=== PATIENT | female | born 1945 | race Caucasian/White ===

== ENCOUNTER 2023-09-09 22:13 | Inpatient (IN) | payer OTHER, SELFPAY ==
[2023-09-09] VITALS (25 sets, daily range): BP systolic 126–209; BP diastolic 55–131; BMI 29.8; BMI 29.5
[2023-09-09 16:26] LABS: % Basophils 1.2 % (0-2); % Eosinophils 5.7 % (0-6); % Immature Granulocytes 0.3 % (0-0.5); % Lymphocytes 25.9 % (20.5-51.1); % Monocytes 12.9 % (1.7-9.3); Absolute Basophils 0.1 10^3/uL (0-0.2); Absolute Eosinophils 0.5 10^3/uL (0-0.7); Absolute Lymphocytes 2.3 10^3/uL (1.2-3.4); Absolute Monocytes 1.2 10^3/uL (0.1-0.6); Absolute Neutrophils 4.9 10^3/uL (1.4-6.5); Hematocrit 38.3 % (37.0-47.0); Hemoglobin 12.9 g/dL (12.0-16.0); Mean Corp Hgb Conc. 33.7 g/dL (33.0-37.0); Mean Corpuscular Hgb 32.3 pg (27.0-31.0); Mean Corpuscular Volume 95.8 fL (81.0-99.0); Mean Platelet Volume 9.5 fL (7.4-10.4); Nucleated Red Blood Cells % 0 %; Platelet Count 232 10^3/uL (130-400)
[2023-09-09 16:49] LABS: ALT (SGPT) 23 U/L (0-35); AST (SGOT) 37 U/L (14-36); Albumin 4.8 g/dl (3.5-5.0); Alkaline Phosphatase 129 U/L (38-126); Blood Urea Nitrogen 21 mg/dl (7-17); Carbon Dioxide 28 mmol/L (22-30); Chloride 99 mmol/L (98-107); Glucose 104 mg/dl (70-99); Potassium 3.9 mmol/L (3.5-5.1); Sodium 138 mmol/L (135-145); Total Bilirubin 0.5 mg/dl (0.2-1.3); Total Protein 8.2 g/dl (6.3-8.2); Troponin I < 0.012 ng/ml; eGFR > 60.00
--- NOTE | 2023-09-09 18:46 | ED.GENMED ---
History of Present Illness
General
Chief Complaint: Blood Pressure Problem
Source: patient
Exam Limitations: none
Time Seen by Provider: 09/09/23 18:03
Travel History
Have you had any contact with someone who has COVID-19?: No
Do you have any symptoms of coronavirus? Fever > 100 degrees, chills, cough, shortness of breath, sore throat, loss of taste or smell, muscle aches, or headache?: No
History of Present Illness
History of Present Illness:
This is a 78 year old female that comes in with c/o hypertension. States that she went to the PCP today as she has had this chest congestion. State that this has been going on for at least a month. States that she had called her PCP before and was
given an albuterol inhaler that she uses and she has about 14 inhalations left. States that she felt she was using this more then normal recently. States that this does help her get some phlegm up. States that she also started with [employer] Tea.
States that she has some chest tightness and SOB with a headache. Denies any fever, chills, abd pain, nausea, vomiting, diarrhea, dizziness, urinary burning.
Past History
Past History
ED Past Medical History: HTN and Other (Chronic bronchitis)
ED Past Surgical History: Orthopedic (Left hip replacement)
Social History
Tobacco: Former smoker
Alcohol: Daily (1 glass of either wine or Rohit Salcido. )
Personal:
Living: with family
Review of Systems
Review of Systems
All Other Systems: ROS reviewed and negative except as documented in HPI and ROS
Constitutional: Reports no symptoms; Denies fever or chills
EENT: Reports no symptoms
Respiratory: Reports cough
Cardiac: Reports chest pain (Tightness)
ABD/GI: Reports no symptoms; Denies abdominal pain, nausea or vomiting
: Reports no symptoms
Musculoskeletal: Reports no symptoms
Skin: Reports no symptoms
Neurological: Reports headache; Denies dizzy
Psychiatric: Reports no symptoms
Phy Exam
General Physical Exam
General Presentation: no apparent distress
General age: appears stated age
General Skin: warm and dry
General Habitus: elderly
General Mental: alert
General Hydration: appears well hydrated
ENT Exam
ENT Exam: TM's normal, pharynx normal and neck supple
Eye Exam
Eye Exam: EOMI
Cardiovascular Exam
Cardiovascular Exam: regular rate/rhythm, no edema and normal peripheral pulses
Pulmonary Exam
Pulmonary Exam: no respiratory distress, no rales, chest non tender, no crackles, no rhonchi and generalized wheezing (Faint insp and exp wheezing throughout)
Gastrointestinal Exam
Gastrointestinal Exam: normal bowel sounds, non tender, soft, no organomegaly, no pulsatile mass and non distended
Musculoskeletal Exam
Musculoskeletal Exam: full ROM and no edema
Skin Exam
Skin Exam: normal color, warm/dry, no rash and no petechia
Psychiatric Exam
Psychiatric Exam: normal mood/affect
Course
Orders/Labs/Results
Orders:
Orders
09/09/23 16:07
Electrocardiogram (*1) Urgent
Reason for Study: Abnormal EKG
09/09/23 16:08
EKG- Treatment ONCE
09/09/23 16:17
Complete Blood Count/With Diff Urgent
Comprehensive Metabolic Panel Urgent
Troponin I Urgent
09/09/23 18:44
HydrALAZINE [Apresoline] 5 mg IV NOW STA
Ipratropium/Albuterol Sulfate [Duoneb] 3 ml INH R NOW ONE
Prednisone [Deltasone] 40 mg PO NOW STA
09/09/23 18:45
CR Chest - 2 Views Urgent
Comment:
Reason For Exam: chest pain
09/09/23 18:53
Electrocardiogram (*1) Urgent
Reason for Study: Chest Pain
Other Reason for Exam: Repeat with Troponin
EKG- Treatment ONCE
09/09/23 19:05
Troponin I Urgent
09/09/23 19:57
Aspirin Chewable [Low Strength Aspirin] 324 mg PO NOW STA
Nitroglycerin Sublingual [Nitrostat (Sublingual)] 0.4 mg SL NOW STA
09/09/23 19:58
Aspirin Chewable [Low Strength Aspirin] 324 mg .ROUTE .STK-MED ONE
Nitroglycerin Sublingual [Nitrostat (Sublingual)] 0.4 mg .ROUTE .STK-MED ONE
09/09/23 20:19
Consult Cardiology [CARDIOLOGY CONSULT] Urgent
Consulting Provider: Felix Aviles
Was physician already notified: Yes
09/09/23 20:[address] Non Medication Order As Directed
Physician Order: PTT 6 hours after initial start of Heparin infusion
Above order entered?: Yes
09/09/23 20:21
Heparin 4,000 units IV NOW STA
09/09/23 20:26
PTT Urgent
Comment: Obtain baseline before beginning heparin infusion if not already collected
09/09/23 20:30
Heparin 90510 Units/250 ml 25,000 units in 250 ml IV PER PROTOCOL
Weight to be used for heparin protocol in kilograms (kg):: 71.4
Protocol:: Cardiac Tx/Acute Coronary
PTT Goal Range to be used:: PTT 73 to 111 seconds
Order type:: Initial
INITIAL Infusion Dose (UNITS/KG/hr) & then follow protocol:: 12 units/kg/hr
Infusion Dose in UNITS/hr & then follow protocol (UNITS/hr):: 850
INFUSION RATE in mL/hr & then follow protocol (mL/hr):: 8.5
PTT less than or equal to 64 seconds:: Increase rate by 200 units/hr (+ 2 mL/hr)
PTT 64.1 to 72.9 seconds:: Increase rate by 100 units/hr (+ 1 mL/hr)
PTT 73 to 111 seconds:: Target Range. No change in rate.
PTT 111.1 to 130.9 seconds:: Decrease rate by 100 units/hr (- 1 mL/hr)
PTT 131 to 199.9 seconds:: HOLD for 1 hr. Then decrease rate by 200 units/hr (- 2 mL/hr)
PTT greater than or equal to 200 seconds:: HOLD for 2 hrs & Notify Provider. Then decrease by 200 units/hr (-
2 mL/hr)
Lab follow-up:: Each change, PTT q6h until 2 consecutive are therapeutic. Then PTT
daily.
09/09/23 20:45
Admit/Transfer Patient As Directed
Co-Sign Provider:
Level of Care: Inpatient admission
Assign to:: IVU
Physician / Group: [facility]
Diagnosis: NSTEMI, Hypertensive Emergency
Reason for Hospitalization: Heparin Drip, Nitro drip
Expected length of stay greater than two midnights?: Yes
ELOS- Estimated Length of Stay in days: 3
I certify the patient meets the requirements for IP care: Yes
09/09/23 20:46
Code Status As Directed
Resuscitation Status: Full Code
09/09/23 21:30
Nitroglycerin 100 mg/250 ml [Nitroglycerin Premix] 100 mg in 250 ml IV PER PROTOCOL
Initial dose in mcg/min, then titrate:: 5
Titrate to keep:: Chest Pain Free
Titrate by mcg/min:: 5 mcg/min, may increase by 10 mcg/min if dose > 20 mcg/min
Frequency of titrations (minutes):: every 3-5 minutes
Maximum dose in mcg/min:: 200
Begin to taper infusion when:: Remained at goal for 2hrs
Taper by mcg/min:: 5 mcg/min
Frequency of taper (minutes) if patient maintains goal:: 30
Taper to off?: Yes
If infusion off & no longer maintaining goal:: Contact Provider
05/13/24 22:58
Troponin I Q6H
09/09/23 23:10
Electrocardiogram (*1) Q6H
Reason for Study: Chest Pain
Comment: at admission and Q6H for total of 3, to be done with each troponin
Albuterol Nebs [Ventolin Nebules] 2.5 mg INH R Q4HPRN PRN
09/09/23 23:10
Echo 2D MMode Color/Doppler Routine
Reason for Study: chest pain
Heparin Protocol- PTT Orders As Directed
PTT per Heparin protocol: -Obtain CBC and baseline PTT - if not already collected.
-Obtain PTT 6 hours from start of infusion. Then, every 6 hours until 2 consecutive
PTT's are therapeutic. Then, PTT Daily.
-With each rate change, obtain PTT every 6 hours until 2 consecutive PTT's are
therapeutic. Then, PTT Daily.
Activity As Directed
Activity Level: Out of Bed- Chair
INT (Intravenous Needle Therapy) As Directed
Comment: maintain peripheral IV access
Intake/ Output As Directed
Frequency: Per unit guidelines
Notify MD As Directed
Notify physician if: PTT is greater than or equal to 200.
Vital Signs As Directed
Frequency: q4h
Weight As Directed
Frequency: Daily
O2 Therapy [RESP] Routine
Nasal Cannula Liter Flow: 2 LPM
Titrate/Wean O2 to maintain O2 sat greater than (%): 90
Special Instructions: 2 liters/minute as needed for pulse oximetry less than 90%
Pulse Ox/spot Check [RESP] Routine
Quantity: 1
Special Instructions: on admission and then every shift if on oxygen
09/10/23 03:00
PTT Urgent
09/10/23 05:00
Troponin I Q6H
09/10/23 05:10
Electrocardiogram (*1) Q6H
Reason for Study: Chest Pain
Comment: at admission and Q6H for total of 3, to be done with each troponin
09/10/23 Breakfast
NPO
Allow oral meds: Yes
Allow clear liquids: 4hrs prior to procedure
Comment: may have unrestricted clear liquid up to 4 hrs prior to scheduled procedure
Basic Metabolic Panel IN AM
Cardiovascular Evaluation IN AM
Complete Blood Count/No Diff IN AM
Glycohemoglobin (HgbA1c) IN AM
09/10/23 08:00
Aspirin Chewable [Low Strength Aspirin] 81 mg PO DAILY
09/10/23 18:00
Atorvastatin [Lipitor] 40 mg PO QPM
09/11/23 06:00
Complete Blood Count/No Diff Q2D
Comment: notify provider: Platelet count < 130,000 or decrease by 50% from baseline
09/13/23 06:00
Complete Blood Count/No Diff Q2D
Comment: notify provider: Platelet count < 130,000 or decrease by 50% from baseline
09/15/23 06:00
Complete Blood Count/No Diff Q2D
Comment: notify provider: Platelet count < 130,000 or decrease by 50% from baseline
09/17/23 06:00
Complete Blood Count/No Diff Q2D
Comment: notify provider: Platelet count < 130,000 or decrease by 50% from baseline
09/19/23 06:00
Complete Blood Count/No Diff Q2D
Comment: notify provider: Platelet count < 130,000 or decrease by 50% from baseline
09/21/23 06:00
Complete Blood Count/No Diff Q2D
Comment: notify provider: Platelet count < 130,000 or decrease by 50% from baseline
09/23/23 06:00
Complete Blood Count/No Diff Q2D
Comment: notify provider: Platelet count < 130,000 or decrease by 50% from baseline
09/25/23 06:00
Complete Blood Count/No Diff Q2D
Comment: notify provider: Platelet count < 130,000 or decrease by 50% from baseline
Abnormal Lab Results
09/09/23 09/09/23
16:17 19:05
RBC 4.00 L 10^6/uL
(4.20-5.40)
MCH 32.3 H pg
(27.0-31.0)
Absolute Monos (auto) 1.2 H 10^3/uL
(0.1-0.6)
Monocytes % 12.9 H %
(1.7-9.3)
BUN 21 H mg/dl
(7-17)
Glucose 104 H mg/dl
(70-99)
AST 37 H U/L
(14-36)
Alkaline Phosphatase 129 H U/L
(38-126)
Troponin I 0.067 H* D ng/ml
09/09/23 16:17
09/09/23 16:17
Slight Dehydration, Glucose nonfasting. Alk phos slightly elevated. Troponin <0.012
Repeat Troponin 0.067
Vital Signs
Initial and Last Documented VS:
Initial Vital Signs
Temp Pulse Resp BP Pulse Ox
98.0 F 97 16 209/98 97
09/09/23 16:03 09/09/23 16:03 09/09/23 16:03 09/09/23 16:03 09/09/23 16:03
Last Documented Vital Signs
Temp Pulse Resp BP Pulse Ox
98.0 F 105 14 176/81 96
09/09/23 16:03 09/09/23 22:00 09/09/23 22:00 09/09/23 22:00 09/09/23 22:00
MDM/Problems Addressed
Differential Diagnosis Includes:
Wheezing, Coronary syndrome
MDM/Problems Addressed:
This is a 78 year old female that comes in with c/o Hypertension and some chest heaviness. States that she went to see the PCP today and was told that she had Chronic bronchitis. Patient has been using an albuteral inhaler to help bring up the
mucous but feels that she has been using this more then normal. Today her BP was elevated to 210/82 at the office so patient was sent here.
Will get labs, Chest x-ray, ECG, Give due neb for wheezing and steroids.
Back into see patient. Explained that her Second Troponin has bumped. Patient states that she feels worse after the breathing treatment that her chest heaviness was a 4 and now it is a 6-7/10. Will admit patient and explained that she will then see
the Interpretive Program Coordinator. Hospitalist notified.
Repeat ECG: rate 109, Sinus tach, Normal axis. RBBB, ST and T wave depression and inversion. II, III, aVR, aVF, V1, V3, V4, V5, V6, Patient States that she feels like her pain is different and that it is spreading. Spoke with Interpretive Program Coordinator and will
place patient on Heparin. Hospitalist notified.
Chronic conditions affecting care:
NA
Acute Exacerbation and/or Progression of Chronic Illness: Other (Chronic bronchitis)
*Pulse Oximetry
Patient hypoxic: no
*EKG
Interpreted by ED Provider?: Yes
Heart Rate: 82
Rate: normal
Rhythm: sinus
[place]: normal axis
Interval: normal interval
QRS Pattern: right bundle branch block
Ischemia: T-wave inversion (III, aVR, aVF, V1, V3, )
*Critical Care Note
Total Time (30-74mins, 75-104mins- exclusive of procedures): Not Applicable
ED Attending Note
-
Portions of this chart may have been created with voice recognition software.� Occasional wrong word or��sound alike� substitutions may have occurred due to the inherent limitations of voice recognition software.
Discharge Plan
Departure
Patient Disposition: Admit
Date of Disposition: 09/09/23
Time of Disposition: 20:00
Presentation/result/management discussed w/ accepting MD/DO: Hospitalist
Patient with high blood pressure during this ER visit?: Yes
Condition: Good
Covid-19: Not Applicable
Discharge Problem:
Chest pain, Elevated troponin, Bilateral wheezing
Interventions
Interventions:
*Risk Screen - Suicide Last Done: 09/09/23 20:11
*Neglect/Abuse Screening Last Done: 09/09/23 20:11
*ED COVID-19 Vaccine History Last Done: 09/09/23 16:03
ED- Cardiac Assessment Last Done: 09/09/23 20:12
ED- Neurological Assessment Last Done: 09/09/23 17:24
ED- Pulmonary Assessment Last Done: 09/09/23 20:19
[2023-09-09] MEDS: DELTASONE 40 MG PO (18:56)
[2023-09-09] MEDS: DUONEB 3 ML INH (19:01)
[2023-09-09] MEDS: APRESOLINE 5 MG IV (19:01)
[2023-09-09 19:39] LABS: Troponin I 0.067 ng/ml
[2023-09-09] MEDS: NITROSTAT (SUBLINGUAL) 0.400000000000000022 MG SL (20:03)
[2023-09-09] MEDS: LOW STRENGTH ASPIRIN 324 MG PO (20:03)
[2023-09-09] MEDS: HEPARIN 4000 UNITS IV (20:51)
[2023-09-09] MEDS: HEPARIN 25000 UNITS/250 ML IV (20:52)
--- NOTE | 2023-09-09 21:24 | HPS.HSE ---
Addendum entered and electronically signed by Lucita Mathew MD 09/09/23 21:37:
see my update note for addenum
Original Note:
Family Physician
-
Family Physician: Kristina Dimas
Chief Complaint
-
Chest Tightness and Elevated Blood Pressure
History of Present Illness
This is a 78 year old female with a past medical history of hypertension and hyperlipidemia who presents after being sent from primary care provider for elevated blood pressure. She was seeing her primary care provider due to ongoing congestion. At
the office today, she was found to have a blood pressure in the 200's and had an abnormal EKG, prompting her PP to send her to ED. She now complains of a band like chest tightness that was dull earlier today and has progressed to more pressure
like sensation. Patient denies any prior history of coronary artery disease.
Medical History
Past Medical History
Past Medical History: Reports Other
Additional Past Medical History:
Essential Hypertension
Hyperlipidemia
Past Surgical History: Reports Other
Additional Past Surgical History:
Hip Replacement
Social History
Tobacco: Former Smoker
Alcohol: Daily (2 glasses of wine or glass of Rohit Salcido)
Family History
Family History: Not pertinent
Allergies / Home Medications
Allergies reflects when Allergies were last updated in [employer].
Home Medications with original date entered in [employer]
Allergy/Medication List:
Allergies
Allergy/AdvReac Type Severity Reaction Status Date / Time
No Known Allergies Allergy Verified 09/09/23 16:07
Home Medications
T-Relief Gel 1 applic topical BIDPRN PRN left side of face 09/09/23
albuterol sulfate 90 mcg/actuation aerosol inhaler 2 puff inhalation R Q6HPRN PRN sob 09/09/23
carboxymethylcellulose sodium 0.25 % eye drops (TheraTears) 2 drp BOTH EYES DAILYPRN PRN dry eyes 09/09/23
chlorhexidine gluconate 0.12 % mouthwash 15 ml buccal BID 09/09/23
coQ10 (ubiquinol) 100 mg capsule 100 mg PO DAILY 09/09/23
loratadine-pseudoephedrine ER 10 mg-240 mg tablet,extended [id number] (Claritin-D 24 Hour) 1 tab PO DAILY PRN allergies 09/09/23
multivitamin with minerals-folic acid 80 mcg chewable tablet (Centrum Adult 50 Plus) 1 tab PO DAILY 09/09/23
simvastatin 20 mg tablet 20 mg PO QPM 09/09/23
valsartan 80 mg-hydrochlorothiazide 12.5 mg tablet 1 tab PO DAILY 09/09/23
Review of Systems
-
A 12 point ROS was completed and negative except as noted: Yes
Constitutional: Denies Fever or Chills
Respiratory: Reports Trouble Breathing
Cardiac: Reports Chest Pain
Physical Exam
Vital Signs
Vital Signs
Temp Pulse Resp BP Pulse Ox
98.0 F 86 15 142/74 95
09/09/23 16:03 09/09/23 21:00 09/09/23 21:00 09/09/23 21:00 09/09/23 21:00
Physical Exam
General: Comfortable and Conversant
HEENT: Anicteric and Moist mucous membranes
Respiratory: Clear and Non Labored Respirations
Cardiac: S1/S2 and Regular Rhythm
GI: Soft and Non Tender
Musculoskeletal: No Clubbing, No Cyanosis and No Edema
Skin: Warm and Dry
Neuro: Awake, Alert, Oriented and Nonfocal/grossly intact
Laboratory Results
-
09/09/23 16:17
09/09/23 16:17
Laboratory Results
APTT 26.0 Sec (23.4-35.0) 09/09/23 20:26
Total Bilirubin 0.5 mg/dl (0.2-1.3) 09/09/23 16:17
AST 37 U/L (14-36) H 09/09/23 16:17
ALT 23 U/L (0-35) 09/09/23 16:17
Alkaline Phosphatase 129 U/L (38-126) H 09/09/23 16:17
Troponin I 0.067 ng/ml H* D 09/09/23 19:05
Data Reviewed
-
Medical Tests (Nuc Med, Echo, EKG etc): Other (ECG personally reviewed which show worsening ST depression in V3, V4 and V5)
Lab Data: Labs Reviewed by me
Impression/Plan
-
Non-ST Elevation ND
-Consult Cardiology
-Continue heparin drip
-Start nitroglycerin drip for chest pain
-Continue aspirin
Hypertensive Emergency
-BP improved following hydralazine and nitro given in ED
-Continue nitro drip
Hyperlipidemia
-Change simvastatin to high intensity atorvastatin
DVT proph: heparin drip
Code Status: Full Code
--- NOTE | 2023-09-09 21:38 | W.PN.UPDATE ---
Update Note
Progress Note Update
I saw and examined the patient.
The MARIA GUADALUPE Stephenson's note was reviewed and I agree with the note.
Comment: 78 y/o F, hx of HTN presents to ER from PCP office. She presented at PCP office for evaluation of chest congestion but was found to be in hypertensive crisis and found to have abnormal EKG. She was referred to ER. in ER, she reports band
like chest pain across lower chest, nonradiating, worse with exertion but also present at rest, no SOB, no fever/chills. No other complaints. EKG x 2 in ER showed worsening TWI and also trop was elevated, concerning for HTN emergency and NSTEMI
ER d/w Cardiology who recommended Nitro drip, Heparin drip and IVU admission.
Plan:
NSTEMI and hypertensive emergency - continue to trend trop, AM EKG. Tele. Echo. IV Heparin, IV Nitro drip. ASA load in ER, will continue. IVU admission. NPO p MN for likely cath. d/w Stefan who is consulted.
Physical Exam
General: Comfortable and Conversant
HEENT: Anicteric and Moist mucous membranes
Respiratory: Clear and Non Labored Respirations
Cardiac: S1/S2 and Regular Rhythm
GI: Soft and Non Tender
Musculoskeletal: No Clubbing, No Cyanosis and No Edema
Skin: Warm and Dry
Neuro: Awake, Alert, Oriented and Nonfocal/grossly intact
[2023-09-09] MEDS: NITROGLYCERIN PREMIX 250 IV (22:11)
[2023-09-10] VITALS (13 sets, daily range): BP systolic 95–190; BP diastolic 50–89; BMI 29.3
[2023-09-10] LABS: Troponin I 0.106 ng/ml
--- NOTE | 2023-09-10 01:26 | PTCARENOTE ---
Late note:Received from the ED at 2318. Oriented to surroundings. Call carlton within reach. Heparin infusing at 850 units/hr. NTG infusing at 5mcg/min. OOB to bathroom with supervision, voiding without difficulty. SR on the monitor in the 80's.
[2023-09-10 04:02] LABS: Hematocrit 36.6 % (37.0-47.0); Hemoglobin 12.5 g/dL (12.0-16.0); Mean Corp Hgb Conc. 34.2 g/dL (33.0-37.0); Mean Corpuscular Volume 93.6 fL (81.0-99.0); Mean Platelet Volume 9.8 fL (7.4-10.4); Platelet Count 236 10^3/uL (130-400); Red Blood Cell Count 3.91 10^6/uL (4.20-5.40); Red Cell Dist. Width 12.1 % (11.5-14.5); White Blood Cell Count 8.6 10^3/uL (4.8-10.8)
[2023-09-10 04:10] LABS: APTT 63.3 Sec (23.4-35.0)
[2023-09-10 04:29] LABS: Troponin I 0.068 ng/ml
[2023-09-10 04:32] LABS: Blood Urea Nitrogen 20 mg/dl (7-17); Calcium 9.9 mg/dl (8.4-10.2); Carbon Dioxide 25 mmol/L (22-30); Chloride 102 mmol/L (98-107); Estimated Creatinine Clearance 59 ml/min; Glucose 156 mg/dl (70-99); HDL Cholesterol 103 mg/dl; LDL Cholesterol, Calculated 64 mg/dl; Potassium 3.9 mmol/L (3.5-5.1); Sodium 139 mmol/L (135-145); Total Cholesterol 181 mg/dl (50-199); Triglyceride 74 mg/dl (10-149); Very Low Density Lipoprotein 14 mg/dl (0-30); eGFR > 60.00
--- NOTE | 2023-09-10 06:33 | W.PN.HOSP.TC ---
Today's Communication/Plan
-
.
Assessment / Plan
Assessment / Plan
Physical Exam
General: Comfortable and Conversant
HEENT: Anicteric and Moist mucous membranes
Respiratory: Clear and Non Labored Respirations
Cardiac: S1/S2
GI: Soft and Non Tender
Musculoskeletal: No Clubbing, No Cyanosis and No Edema
Skin: Warm and Dry
Neuro: Awake, Alert, Oriented and Nonfocal/grossly intact
78 presented to ER from PCP office. She presented at PCP office for evaluation of chest congestion but was found to be in hypertensive crisis and found to have abnormal EKG. She was referred to ER. in ER, she reported band like chest pain across
lower chest. trop was elevated, concerning for HTN emergency and NSTEMI
ER d/w Cardiology who recommended Nitro drip, Heparin drip and IVU admission.
# Non-ST Elevation AK
Same chest pain discomfort ( band like heaviness in lower chest)
-Continue heparin drip, monitor PTT
-c/w nitroglycerin drip for chest pain
-Continue aspirin, statin
- Order Echo
- Add BB. LDL at 64
- Chest x ray on admission: No acute cardiopulmonary process
- EKG with conduction defects.
- Peak troponin at 0.106 and then down to 0.068
- Keep NPO until material handling equipment stevedore evaluates her
- Appreciate cardiology help
# Headache, due to nitro gtt
will add PRN Tylenol, goal to wean off nitro gtt
# Hypertensive Emergency
-BP improved with current nitro gtt. AM BP 176/84
-Continue nitro drip for now, she used valsartan/ HCTZ at home
- Will add BB
#Hyperlipidemia
- c/w statin. LDL is low
DVT proph: heparin drip
Code Status: Full Code
Total time spent to see the patient, examine the patient on the floor, review data and lab results, discuss treatment plan with patient and nursing staff around 55 minutes
Anticipated Discharge: > 48 hours
Subjective/Interval History
-
Date of Service: September 10, 2023
Mild lower chest heaviness
Has headache
No sob
Objective Data
-
Labs:
Laboratory Results
09/09/23 09/10/23 09/10/23
20:26 03:43 03:44
WBC 8.6
Hgb 12.5
Hct 36.6 L
Plt Count 236
APTT 26.0 63.3 H
Sodium 139
Potassium 3.9
Chloride 102
Carbon Dioxide 25
BUN 20 H
Creatinine 0.7
Glucose 156 H
Calcium 9.9
09/10/23
10:15
WBC
Hgb
Hct
Plt Count
APTT Pending
Sodium
Potassium
Chloride
Carbon Dioxide
BUN
Creatinine
Glucose
Calcium
Vital Signs:
Vital Signs
Temp Pulse Resp BP Pulse Ox
98.6 F 92 20 142/82 94
09/10/23 05:14 09/10/23 04:00 09/10/23 05:14 09/10/23 03:31 09/10/23 05:14
[2023-09-10] MEDS: LOW STRENGTH ASPIRIN 81 MG PO (07:57)
[2023-09-10] MEDS: TYLENOL 1000 MG PO (07:58)
[2023-09-10 09:22] LABS: Glycohemoglobin (HgbA1c) 6.1 % (4.0-5.6)
--- NOTE | 2023-09-10 10:17 | CON.CAR ---
Consultation
Consultation Request
Date/Time Consultation Requested: Sep 09 2023
Date/Time Consultation Performed: September 09, 10:15 2023
Requesting Provider: hospitalist
Performing Provider: Lazaro Castro
Reason for Consultation: Chest pain and HTN
Medical History
-
Chief Complaint: Chest congestion and pain
History of Present Illness:
38-year-old female with past medical history of hypertension hyperlipidemia who presented initially to her primary care provider where she was found to have significantly elevated blood pressure. She set the appointment up because she had ongoing
chest congestion over the last approximate month. Her blood pressure was in the 200s and her ECG showed a right bundle branch block which prompted her to go to the emergency room. Additionally, on her way over to the emergency room she developed
chest tightness and pressure. She describes it as a band causing tightness and pressure over her chest and seem to be improve once the nitro drip started. Additionally, in talking with her it seems that she has had typical anginal symptoms over
about the last month; chest pressure again with exertion and relieved with rest. She currently remains on a nitro and heparin drips.
Past Medical History
Past Medical History: HTN and Other (Hyperlipidemia)
Past Surgical History: Other (Hip replacement)
Social History
Tobacco: Former Smoker
Alcohol: Daily (To less than 1)
Family History
Family History: Reviewed & Not Pertinent
Allergies / Home Medications
Allergy/AdvReac Type Severity Reaction Status Date / Time
No Known Allergies Allergy Verified 09/09/23 16:07
�Medication �Instructions �Recorded �Confirmed �Type
T-Relief Gel 1 applic topical BIDPRN PRN left 09/09/23 09/09/23 History
side of face
albuterol sulfate 90 mcg/actuation 2 puff inhalation R Q6HPRN PRN sob 09/09/23 09/09/23 History
aerosol inhaler
carboxymethylcellulose sodium 0.25 2 drp BOTH EYES DAILYPRN PRN dry 09/09/23 09/09/23 History
% eye drops (TheraTears) eyes
chlorhexidine gluconate 0.12 % 15 ml buccal BID 09/09/23 09/09/23 History
mouthwash
coQ10 (ubiquinol) 100 mg capsule 100 mg PO DAILY 09/09/23 09/09/23 History
loratadine-pseudoephedrine ER 10 1 tab PO DAILY PRN allergies 09/09/23 09/09/23 History
mg-240 mg tablet,extended
[id number] (Claritin-D 24 Hour)
multivitamin with minerals-folic 1 tab PO DAILY Supplement 09/09/23 09/09/23 History
acid 80 mcg chewable tablet
(Centrum Adult 50 Plus)
simvastatin 20 mg tablet 20 mg PO QPM High Cholesterol 09/09/23 09/09/23 History
valsartan 80 1 tab PO DAILY Blood Pressure 09/09/23 09/09/23 History
mg-hydrochlorothiazide 12.5 mg
tablet
Review of Systems
-
All other systems: Negative unless noted
Physical Exam
Vital Signs
Temp Pulse Resp BP Pulse Ox
98.3 F 99 16 176/84 96
09/10/23 06:53 09/10/23 08:00 09/10/23 06:53 09/10/23 06:54 09/10/23 06:53
Lab Results
09/10/23 03:44
09/10/23 03:43
Troponin I 0.068 ng/ml H* D 09/10/23 03:43
Physical Exam
General: Well Developed and Well Nourished
HEENT: Normocephalic and Anicteric
Respiratory: Clear and Non Labored Respirations
Cardiac: S1/S2 and Regular Rhythm
GI: Soft and Non Tender
Musculoskeletal: No Clubbing and No Edema
Skin: Warm and Dry
Neuro: AO x 3
Hematologic/Lymphatic: No Lymphadenopathy
Psych: Calm
Impression / Plan
-
78-year-old female with history of hypertension hyperlipidemia who presented initially for chest congestion to her primary care office found to be in hypertensive emergency and sent to the emergency room. She then developed chest pain concerning
for NSTEMI given positive troponin.
NSTEMI with hypertensive emergency
-Continue heparin and nitro drips
-Likely restart valsartan later today or tomorrow
-Continue aspirin
-Novelties Sales Representative today
-Increase simvastatin to Crestor 40
Hypertension
-Nitro drip for now plan to transition after cath
-Start carvedilol 6.25 twice daily
-Likely restart valsartan
Data Reviewed
-
EKG: Tracing Personally Visualized and interpreted (sr hassan)
Labs: Labs Reviewed by me
[2023-09-10] MEDS: COREG 3.125 MG PO (12:04)
--- NOTE | 2023-09-10 12:30 | CM ---
spoke to pt in room, she is prev indep, lives withher husb in a ranch home with 4 steps to enter. she uses a cane as needed. denies any dc planning needs. plan is for dc to home when medically stable.
[2023-09-10 12:36] LABS: APTT 81.9 Sec (23.4-35.0)
--- NOTE | 2023-09-10 15:34 | ITS.CL.CATH ---
Metal Annealer - Catheterization
Cardiac Catheterization
Procedure Report:
CARDIAC CATHETERIZATION REPORT
Date of Procedure: 09/10/2023
Referring: Lazaro Castro MD
Indication: Suspected ACS/chest pain with troponin 0.1
HEMODYNAMIC DATA
AO: 178/79
LV: 178/16
LEFT VENTRICULOGRAPHY: Normal left ventricular wall motion with EF 67%
CORONARY ANGIOGRAPHY
Dominance: Left
Left Main: Normal
LAD: Normal
Circumflex: Normal dominant vessel
RCA: Normal nondominant vessel
Closure Device: None-the procedure was performed via the right radial artery. The Julio's test was normal prior to the procedure.
Radiation (mGy): 128
DAP (cm2.Gy): 9.7
Fluoroscopy time: 1.6 minutes
CONCLUSIONS
1: Systemic hypertension
2: Normal ventricular function with EF 67%
3. Normal coronary arteries
Copy to: Lazaro Castro MD, Carleen Dimas
Antolin Thompson MD, [facility], [facility]
[2023-09-10] MEDS: NSS 1000 IV (15:47)
[2023-09-10] MEDS: DIOVAN 80 MG PO (17:35)
[2023-09-10] MEDS: LIPITOR 40 MG PO (17:36)
--- NOTE | 2023-09-11 03:13 | DOWNTIME ---
There was a [employer] Client Roulette Dealer Downtime on 09/10/2023 from 0100 to 09/11/2023 at 0300. Downtime documentation of patient's care, including medication administrations, has been reconciled in the electronic record per guidelines. Refer to the
patient's paper chart under the miscellaneous tab to see printed paper medication records and downtime forms.
[2023-09-11 04:44] VITALS: BP 164/72
[2023-09-11 04:45] VITALS: BP 165/80
[2023-09-11 05:37] LABS: Hematocrit 35.1 % (37.0-47.0); Mean Corp Hgb Conc. 34.2 g/dL (33.0-37.0); Mean Corpuscular Volume 93.6 fL (81.0-99.0); Mean Platelet Volume 9.9 fL (7.4-10.4); Platelet Count 231 10^3/uL (130-400); Red Blood Cell Count 3.75 10^6/uL (4.20-5.40); Red Cell Dist. Width 12.3 % (11.5-14.5); White Blood Cell Count 9.1 10^3/uL (4.8-10.8)
[2023-09-11 06:01] LABS: Blood Urea Nitrogen 25 mg/dl (7-17); Calcium 10.2 mg/dl (8.4-10.2); Carbon Dioxide 24 mmol/L (22-30); Chloride 102 mmol/L (98-107); Estimated Creatinine Clearance 45 ml/min; Glucose 104 mg/dl (70-99); Potassium 4.1 mmol/L (3.5-5.1); Sodium 137 mmol/L (135-145); eGFR > 60.00
--- NOTE | 2023-09-11 06:21 | W.PN.HOSP.TC ---
Today's Communication/Plan
-
dc
Assessment / Plan
Assessment / Plan
Physical Exam
General: Comfortable and Conversant
HEENT: Anicteric and Moist mucous membranes
Respiratory: Clear and Non Labored Respirations
Cardiac: S1/S2
GI: Soft and Non Tender
Musculoskeletal: No Clubbing, No Cyanosis and No Edema
Skin: Warm and Dry
Neuro: Awake, Alert, Oriented and Nonfocal/grossly intact
78 presented to ER from PCP office. She presented at PCP office for evaluation of chest congestion but was found to be in hypertensive crisis and found to have abnormal EKG. She was referred to ER. in ER, she reported band like chest pain across
lower chest. trop was elevated, concerning for HTN emergency and NSTEMI
ER d/w Cardiology who recommended Nitro drip, Heparin drip and IVU admission.
# HTN emergency with positive troponin consistent with acute nonischemic myocardial injury secondary to hypertensive crisis/emergency
S/p cardiac catheterization with nonobstructive coronary disease
Continue to manage and control of blood pressure. Status post nitroglycerin drip and heparin drip.
-Continue aspirin, statin
-Echocardiogram showed normal left ventricular ejection fraction of 55 to 60%. Stage I diastolic dysfunction. Normal right ventricular size and function, no significant valvular disease.
-Added low-dose Toprol XL. Trial of Coreg might have resulted with some wheezes.
LD at 64
- Chest x ray on admission: No acute cardiopulmonary process
- EKG with conduction defects.
- Peak troponin at 0.106 and then down to 0.068
- Appreciate cardiology help
# Hypertensive Emergency
Better controlled. Started on low-dose Toprol XL. Increase losartan and continue with hydrochlorothiazide
#Hyperlipidemia
- c/w statin. LDL is low
DVT proph: heparin drip
Code Status: Full Code
Total discharge time spent to see the patient, examine the patient on the floor, review data and lab results, discuss discharge plan with patient, cardiology and nursing staff around 65 minutes
Anticipated Discharge: Today
Subjective/Interval History
-
Date of Service: September 11, 2023
Doing well
No chest pain
No sob
Objective Data
-
Labs:
Laboratory Results
09/10/23 09/11/23
20:15 04:53
WBC Pending
Hgb Pending
Hct Pending
Plt Count Pending
APTT Cancelled
Sodium 137
Potassium 4.1
Chloride 102
Carbon Dioxide 24
BUN 25 H
Creatinine 0.9
Glucose 104 H
Calcium 10.2
Vital Signs:
Vital Signs
Temp Pulse Resp BP Pulse Ox
98.3 F 67 18 165/80 96
09/11/23 04:47 09/11/23 05:00 09/11/23 04:47 09/11/23 04:45 09/11/23 04:47
I&O
09/09/23 09/10/23 09/11/23
06:59 06:59 06:59
Intake Total 1701.4 / 1701.4
Balance 1701.4 / 1701.4
[2023-09-11 06:56] VITALS: BP 165/60
[2023-09-11] MEDS: DIOVAN 160 MG PO (08:36)
[2023-09-11] MEDS: TOPROL XL 25 MG PO (08:36)
--- NOTE | 2023-09-11 09:25 | W.PN.CD ---
Today's Communication / Plan
-
cont metoprolol valsartan and nifedipine
OK to shower
Impression / Plan
-
78-year-old female with history of hypertension hyperlipidemia who presented initially for chest congestion to her primary care office found to be in hypertensive emergency and sent to the emergency room. She then developed chest pain concerning
for NSTEMI given positive troponin.
Nonischemic myocardial injury 2/2 hypertensive emergency
-continue valsartan and metoprolol
- added nifedipine 30 mg daily
-Continue aspirin
-OK to go back to home statin
Hypertension
-metoprolol valsartan and nifedpine
Cath September 09: normal coronary artery and EF 67%
Echo September 09: CONCLUSIONS
Normal left ventricular size, wall thickness and systolic function.
No regional wall motion abnormalities are seen.
LV ejection fraction is 55-60% by Mas's method of discs.
Stage I diastolic dysfunction suggestive of abnormal relaxation.
Normal right ventricular size and function.
No significant valvular disease.
Estimated pulmonary artery pressure of 15-20 mmHg assuming a right atrial
pressure of 3 mmHg.
No prior study for comparison.
Subjective: Feeling better no new complaints
Physical Exam
Vital Signs/Labs
Vital Signs
Temp Pulse Resp BP Pulse Ox
98.7 F 86 20 165/66 96
09/11/23 06:51 09/11/23 08:36 09/11/23 06:51 09/11/23 08:36 09/11/23 06:51
09/10/23 09/11/23 09/12/23
06:59 06:59 06:59
Actual Weight 156 lb 1.396 oz 154 lb 12.232 oz
09/11/23 04:53
09/11/23 04:53
APTT Cancelled 09/10/23 20:15
Triglycerides 74 mg/dl (10-149) 09/10/23 03:43
LDL Cholesterol, Calc 64 mg/dl 09/10/23 03:43
VLDL Cholesterol, Calc 14 mg/dl (0-30) 09/10/23 03:43
HDL Cholesterol 103 mg/dl 09/10/23 03:43
LAB Results
09/09/23 09/09/23 09/09/23
16:17 19:05 22:58
Troponin I < 0.012 0.067 H* D 0.106 H* D
09/10/23
03:43
Troponin I 0.068 H* D
Physical Exam
Constitutional: No acute distress
EENT: Anicteric
Cardiovascular: Rhythm & rate is regular and Pedal edema is absent
Respiratory: Respiratory effort normal and Wheeze Present
GI: Soft
Neuro/Psych: AO x 3
Data Reviewed
-
Date of Service: September 11, 2023
Medical Decision Making: Reviewed Test Results
EKG: Tracing Personally Visualized and interpreted (sr)
Echo: Report Reviewed by me
Labs: Labs Reviewed by me
[2023-09-11 09:47] VITALS: BP 148/58
[2023-09-11] MEDS: PROCARDIA XL (EXTENDED RELEASE) 30 MG PO (09:48)
--- NOTE | 2023-09-11 11:09 | W.DCSUMMARY ---
Discharge Summary
Discharge Data
Date of Admission: 09/09/23
Date of Discharge: 09/11/23
-
Pending Results: No
Hospital Course
78 years old female was sent to the emergency room for elevated blood pressure. Patient went to see her primary care doctor for chest congestion and was found to have elevated blood pressure. Patient was diagnosed with hypertensive emergency in
hospital and was found to have elevated troponin at 0.067 and peaked at 0.106. Initially, patient reported some chest heaviness but no significant pain or discomfort. Patient was evaluated by parts room associate. She was started on intravenous
nitroglycerin and intravenous heparin. Patient had left heart catheterization that showed normal coronaries with left ventricular ejection fraction 67 percent. Patient was diagnosed with nonischemic myocardial injury secondary to hypertensive
emergency. She had echocardiogram that showed normal left ventricular size and function, no regional wall abnormality, left ventricular ejection fraction 55 to 60%, stage I diastolic dysfunction with no significant valvular disease. Patient was
not monitoring her blood pressure at home. She was started on new medications including Toprol and nifedipine. Valsartan dose was increased to 160 from 80 mg. Blood pressure became better controlled. She did not have chest pain or discomfort.
Potential benefits and side effects of new medications, higher dose of losartan were given to the patient, she verbalized understanding. Patient did not have fever or leukocytosis. She remained hemodynamically stable and was discharged home in a
stable condition.
Discharge Plan
-
Patient Disposition: Home (Routine Discharge)
Discharge Diagnosis/Procedures: Hypertensive emergency with acute non-ischemic myocardial injury secondary to hypertensive crisis/emergency, status post cardiac catheterization with no obstruction in coronary arteries.
Primary hypertension, you were started on new medications called Toprol & nifedipine, we increased the dose of Valsartan. Please monitor your blood pressure at home and follow the new changes to your medications. Optimal blood pressure should be
around or less than 140/80.
Potential side effects of metoprolol include fatigue, low blood pressure, low heart rate.
Potential side effect of nifedipine include low blood pressure.
Potential side effects of higher dose of losartan include low blood pressure, renal injury, high potassium.
Diet: Low Cholesterol
Driving Restrictions: No driving for 24 hours
Stand Alone Forms: DC Instructions- Cath/EP Lab
Referrals:
Shalini Orozco CRNP [Specified Professional Personl] - 09/30/23 1:00 pm (Cardiology followup appointment)
Kristina Dimas MD [Family Provider] - in one to two weeks
Prescriptions:
New
nifedipine 30 mg Tablet Extended Release
30 mg PO DAILY Qty: 30 0RF
metoprolol succinate 25 mg Tablet Extended Release 24 Hr
25 mg PO DAILY Qty: 30 0RF
valsartan-hydrochlorothiazide 160-12.5 mg tablet
1 tab PO DAILY Qty: 30 0RF
Continued
TheraTears 0.25 % Drops
2 drp BOTH EYES DAILYPRN PRN (Reason: dry eyes)
Claritin-D 24 Hour 10-240 mg Tablet Extended Release 24 Hr
1 tab PO DAILY PRN (Reason: allergies)
simvastatin 20 mg Tablet
20 mg PO QPM
albuterol sulfate 90 mcg/actuation Hfa Aerosol Inhaler
2 puff INHALATION R Q6HPRN PRN (Reason: sob)
coQ10 (ubiquinol) 100 mg Capsule
100 mg PO DAILY
Centrum Adult 50 Plus 80 mcg Tablet,Chewable
1 tab PO DAILY
T-Relief Gel
1 applic topical BIDPRN PRN (Reason: left side of face)
Discontinued
valsartan-hydrochlorothiazide 80-12.5 mg Tablet
1 tab PO DAILY
chlorhexidine gluconate 0.12 % Mouthwash
15 ml BUCCAL BID
Discharge Orders:
Discharge Patient (As Directed); Ordered 09/11/23
Ordered By: Dot Clancy
Care Plan Goals
Care Plan Goals:
Problem: Readiness for enhanced knowledge related to diagnosis and treatment plan
Goal: Understand your diagnosis and treatment plan needs, including medications if applicable.
Instructions: Know your diagnosis, underlying causes and treatment plan options, including medications if applicable. Consult with your health care team to learn about your diagnosis and treatment plan, including medications if applicable.
Discharge Date and Time
Print Language: MONTENEGRIN
--- NOTE | 2023-09-11 12:01 | CM ---
Pt. for DC to home today. There are no identified DC needs.
Plan: HOME, no needs.
== END 2023-09-11 12:39 | disposition home or self-care (01) | DRG 287 ==
LOC: IVU 22:13
PROVIDERS: Clinical Nurse Specialist Family Health; Emergency Medicine; Internal Medicine Cardiovascular Disease; Nurse Practitioner Adult Health; Physician Assistant Medical; ADMITTING PHYSICIAN Internal Medicine; ATTENDING PHYSICIAN Internal Medicine; EMERGENCY PHYSICIAN Emergency Medicine; FAMILY PHYSICIAN Internal Medicine; OTHER PHYSICIAN Internal Medicine Cardiovascular Disease
PROC: B2111ZZ Fluoroscopy of Multiple Coronary Arteries using Low Osmolar Contrast (ICD-10-PCS; 2023-09-10)
PROC: 4A023N7 Measurement of Cardiac Sampling and Pressure, Left Heart, Percutaneous Approach (ICD-10-PCS; 2023-09-10)
PROC: B2151ZZ Fluoroscopy of Left Heart using Low Osmolar Contrast (ICD-10-PCS; 2023-09-10)
DX: I16.1 Hypertensive emergency (principal); I5A Non-ischemic myocardial injury (non-traumatic); I10 Essential (primary) hypertension; J42 Unspecified chronic bronchitis; I45.10 Unspecified right bundle-branch block; E78.00 Pure hypercholesterolemia, unspecified; E78.49 Other hyperlipidemia; G44.40 Drug-induced headache, not elsewhere classified, not intractable; T46.3X5A Adverse effect of coronary vasodilators, initial encounter; Y92.239 Unspecified place in hospital as the place of occurrence of the external cause; Z96.642 Presence of left artificial hip joint; Z87.891 Personal history of nicotine dependence
CPT/HCPCS: 71046; 80048; 80053; 80061; 83036; 84484; 85025; 85027; 85730; 93005; 93306; 93458; 94640; 96374; 99285; C1894; Q9967

== ENCOUNTER 2023-09-16 11:13 | Emergency (ER) | payer OTHER, SELFPAY ==
[2023-09-16 11:23] VITALS: BP 183/86
[2023-09-16 14:08] VITALS: BP 154/81
--- NOTE | 2023-09-16 14:36 | ED.GENMED ---
History of Present Illness
<Sundar Mahmood DO - Last Filed: 09/16/23 15:50>
General
Chief Complaint: Post Operative Problem(s)
Time Seen by Provider: 09/16/23 14:23
<Sofie El PA-C - Last Filed: 09/16/23 21:27>
General
Source: patient
Exam Limitations: none
Nursing documentation reviewed up to this point in time: agreed with
Travel History
Have you had any contact with someone who has COVID-19?: No
Do you have any symptoms of coronavirus? Fever > 100 degrees, chills, cough, shortness of breath, sore throat, loss of taste or smell, muscle aches, or headache?: No
History of Present Illness
History of Present Illness:
78 y/o F with h/o HTN
NSTEMI last week after hypertensive emergency with NSTEMI trop as high as 0.1
clean cath 09/09
discharged on new medications, increase in her valsartan and added 2 other meds
pt has been monitoring her BPs at home readings are 110s/60s average
she has been feeling well
has some bruising to R volar radial wrist access site which is resolving but she feels that it is swollen slightly and a little warm
so she called the cards office and was referred for evaluation
she also at 7 am thi andreasragnieszka felt lightheaded with a 1/10 headache today and was wondering if it was side effects of her meds
her bps were 130s/60s
she has not had any residual symptoms, feels well here
dnies cp, sob, passing out, weakness, numbnes sin arm etc
Past History
<Sofie El PA-C - Last Filed: 09/16/23 21:27>
Past History
ED Past Medical History: HTN and Other (Chronic bronchitis)
ED Past Surgical History: Orthopedic (Left hip replacement)
Social History
Tobacco: Former smoker
Alcohol: Daily (1 glass of either wine or Rohit Salcido. )
Personal:
Living: with family
Review of Systems
<Sofie El PA-C - Last Filed: 09/16/23 21:27>
Review of Systems
Allergies reviewed?: Yes
All Other Systems: Not applicable
Phy Exam
<Sofie El PA-C - Last Filed: 09/16/23 21:27>
Physical Exam
Physical Exam:
GENERAL: Alert , in no apparent distress, slightly anxious
EYE: pupils equal and reactive
NECK: Supple
ENT: o/p clr, mmm.
CARDIAC: Regular rate and rhythm .
LUNGS: Clear breath sounds bilaterally, no acute respiratory distress, no wheezes/rales/rhonchi
ABDOMEN: Soft, without focal tenderness, no r/g, no cvat, normal bowel sounds
NEUROLOGICAL: Alert and oriented, no focal neuro deficits
SKIN: Warm and dry, skin intact.
MUSCULOSKELETAL: No edema, well perfused. neg samra's sign
bruising volar wrist ful rom
no swelling
right radial site is not swollen, normal radial pulse, no redness, no warmth, no tenderness
normal carlos test
PSYCH: anxious but pleasant
Course
<Sundar Mahmood, - Last Filed: 09/16/23 15:50>
Orders/Labs/Results
Orders:
Orders
09/16/23 11:27
EKG [Electrocardiogram (*1)] Urgent
Reason for Study: Chest Pain
EKG- Treatment ONCE
09/16/23 15:51
Ketorolac [Toradol] 15 mg IV NOW STA
09/16/23 11:27
09/16/23 11:27
Vital Signs
Initial and Last Documented VS:
Initial Vital Signs
Temp Pulse Resp BP Pulse Ox
98.1 F 86 18 183/86 98
09/16/23 11:23 09/16/23 11:23 09/16/23 11:23 09/16/23 11:23 09/16/23 11:23
Last Documented Vital Signs
Temp Pulse Resp BP Pulse Ox
98.1 F 66 12 148/78 95
09/16/23 11:23 09/16/23 15:30 09/16/23 15:30 09/16/23 15:00 09/16/23 15:30
<Sofie El PA-C - Last Filed: 09/16/23 21:27>
Orders/Labs/Results
Orders:
Orders
09/16/23 11:27
EKG [Electrocardiogram (*1)] Urgent
Reason for Study: Chest Pain
EKG- Treatment ONCE
09/16/23 15:51
Ketorolac [Toradol] 15 mg IV NOW STA
09/16/23 11:27
09/16/23 11:27
Vital Signs
Initial and Last Documented VS:
Initial Vital Signs
Temp Pulse Resp BP Pulse Ox
98.1 F 86 18 183/86 98
09/16/23 11:23 09/16/23 11:23 09/16/23 11:23 09/16/23 11:23 09/16/23 11:23
Last Documented Vital Signs
Temp Pulse Resp BP Pulse Ox
98.1 F 66 12 148/78 95
09/16/23 11:23 09/16/23 15:30 09/16/23 15:30 09/16/23 15:00 09/16/23 15:30
<Sofie El PA-C - Last Filed: 09/16/23 21:27>
MDM/Problems Addressed
Differential Diagnosis Includes:
anxiety, hypertension, medication side effects
MDM/Problems Addressed:
78 y/o F with recent admission for hypertensive emergency, ,nstemi and clean cath
here for feeling ligthheaded this morning which resolved
bps controlled at home
no symptoms here
feels anxious, taking her bps 5-7 times a day dstepite them befing normal becuase she has appt tomorrow with er PCP and has alot of questions
also was concerned her wrist was swollen
on exam pt is slightly hypertensive but seems anxious
her radial access site appears to be healing well and as expected, no suspected pseudoaneurysm, normal vascular flow distally, bruising resolving
no STS
full rom
ekg unchanged
seen by ed attending
agreed that pt likely somewhat anxious, radial site does not need urgent evaluation, and that her symptosm are possibly from anxiety
recommends staying hydrated and f/u with pcp tomrorow
<Sofie El PA-C - Last Filed: 09/16/23 21:27>
*Critical Care Note
Total Time (30-74mins, 75-104mins- exclusive of procedures): Not Applicable
ED Attending Note
<Sundar Mahmood, - Last Filed: 09/16/23 15:50>
ED Attending Note
Patient seen and examined by attending physician: Yes
ED Attending Note:
I have reviewed and agree with history and treatment plan by Marina El. My exam revealed 78-year-old female in no acute distress, clear lungs, no murmur. Moving all extremities out difficulty. No neurologic deficits. Healing bruising at right
radial catheter site. Do not suspect pseudoaneurysm. Stable for discharge.
<Sofie El PA-C - Last Filed: 09/16/23 21:27>
-
Portions of this chart may have been created with voice recognition software.� Occasional wrong word or��sound alike� substitutions may have occurred due to the inherent limitations of voice recognition software.
Discharge Plan
Departure
Patient Disposition: Home (Routine Discharge)
Date of Disposition: 09/16/23
Time of Disposition: 15:25
Patient with high blood pressure during this ER visit?: Yes
Condition: Fair
Covid-19: Not Applicable
Discharge Problem:
Encounter for medical screening examination, Hypertension
Instructions: BLOOD PRESSURE
Prescriptions:
No Action
TheraTears 0.25 % Drops
2 drp BOTH EYES DAILYPRN PRN (Reason: dry eyes)
Claritin-D 24 Hour 10-240 mg Tablet Extended Release 24 Hr
1 tab PO DAILY PRN (Reason: allergies)
simvastatin 20 mg Tablet
20 mg PO QPM
albuterol sulfate 90 mcg/actuation Hfa Aerosol Inhaler
2 puff INHALATION R Q6HPRN PRN (Reason: sob)
coQ10 (ubiquinol) 100 mg Capsule
100 mg PO DAILY
Centrum Adult 50 Plus 80 mcg Tablet,Chewable
1 tab PO DAILY
T-Relief Gel
1 applic topical BIDPRN PRN (Reason: B/L sides of face)
nifedipine 30 mg Tablet Extended Release
30 mg PO DAILY Qty: 30 0RF
metoprolol succinate 25 mg Tablet Extended Release 24 Hr
25 mg PO DAILY Qty: 30 0RF
valsartan-hydrochlorothiazide 160-12.5 mg tablet
1 tab PO DAILY Qty: 30 0RF
Referrals:
Kristina Dimas MD [Family Provider] - Tomorrow
Activity Restrictions/Additional Instructions:
YOUR BLOOD PRESSURE CAME DOWN TO 150/80 HERE
YOUR WRIST APPEARS TO HAVE NORMAL BRUISING POST CATHETERIZATION
YOUR EKG WAS UNCHAGNED
FOLLOW UP WITH YOUR FAMILY DOCTOR PLANNED
RETURN FOR ANY CONCERNS.
Interventions
Interventions:
*Risk Screen - Suicide Last Done: 09/16/23 11:23
*General Assessment Last Done: 09/16/23 11:23
*Neglect/Abuse Screening Last Done: 09/16/23 11:23
ED- Fall Risk Assessment Last Done: 09/16/23 15:54
*ED COVID-19 Vaccine History Last Done: 09/16/23 11:23
*Nursing Disposition Last Done: 09/16/23 15:54
ED-Skin Assessment Last Done: 09/16/23 14:20
Discharge Date and Time
Discharge Date/Time: 09/16/23 15:55
Print Language: [email or web address]
[2023-09-16 14:48] VITALS: BP 156/64
[2023-09-16 15:00] VITALS: BP 148/78
== END 2023-09-16 15:55 | disposition home or self-care (01) ==
LOC: EMR 11:13
PROVIDERS: EMERGENCY PHYSICIAN Emergency Medicine; FAMILY PHYSICIAN Internal Medicine
DX: I10 Essential (primary) hypertension (principal); Z02.79 Encounter for issue of other medical certificate; M79.89 Other specified soft tissue disorders; R42 Dizziness and giddiness; R51.9 Headache, unspecified; J42 Unspecified chronic bronchitis; I25.2 Old myocardial infarction; Z98.890 Other specified postprocedural states; Z96.642 Presence of left artificial hip joint; Z87.891 Personal history of nicotine dependence
CPT/HCPCS: 99283; 93005